=== PATIENT | male | born 1995 | race African-American/Black ===

== ENCOUNTER 2017-04-04 18:43 | Emergency (ER) | payer OTHER ==
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
--- NOTE | 2017-04-04 19:48 | CT ---
EXAMINATION TYPE: CT facial bones wo con DATE OF EXAM: 04/04/2017 COMPARISON: NONE HISTORY: Left sided swelling post OP reconstructive surgery CT DLP: 685 mGycm Automated exposure control for dose reduction was used. TECHNIQUE: CT scan of the sinuses is performed without contrast, axial images are obtained, coronal r eformatted images are also reviewed. FINDINGS: There are plates and screws fixing fractures of the anterior and posterior left hemimandibl e. The fragments are in anatomic position. The right hemimandible appears intact. Maxilla is intact. The zygomatic arches appear normal. There is normal aeration of the paranasal sinuses. There is a depressed fracture of the left frontal bone. Depression is 5 mm. There is soft tissue swel ling on the left side of the mandible. A discrete fluid collection could be present adjacent to the a ngle of the mandible on the left side. There is no evidence of orbital mass. The globes are symmetric . IMPRESSION: There is anatomic reduction of the left hemimandible fractures. There is asymmetric soft tissue swelling or density lateral to the angle of the left mandible compared to the right. Hematoma cannot be excluded. Asymmetry measures 1.2 cm. Depressed fracture left frontal bone. There is nondisplaced fracture of the coronoid process of the l eft hemimandible as well.
[2017-04-04 20:10] VITALS: BP 131/78; PULSE 74; RESP 18; TEMP 98.3
== END 2017-04-04 20:23 | disposition home or self-care (01) ==
LOC: EC 18:43
DX: S00.83XA Contusion of other part of head, initial encounter (principal); F17.200 Nicotine dependence, unspecified, uncomplicated; Y09 Assault by unspecified means
CPT/HCPCS: 70486; 99284

== ENCOUNTER → 2025-01-21 | Outpatient (CLI) | payer OTHER ==
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
== END | disposition home or self-care (01) ==
LOC: RADMRIMAIN 19:45
PROVIDERS: ATTEND Family Medicine
DX: G83.21 Monoplegia of upper limb affecting right dominant side (principal); R29.898 Other symptoms and signs involving the musculoskeletal system; G95.89 Other specified diseases of spinal cord
CPT/HCPCS: 72156; A9585